=== PATIENT | male | born 1990 | race Hispanic/Latino ===

== ENCOUNTER 2022-05-29 14:59 | Outpatient (CLI) | payer OTHER | END 2022-05-29 15:00 | disposition home or self-care (01) | LOC: CSHMRI 14:59 | PROVIDERS: ATTEND Anesthesiology Pain Medicine | DX: M54.16 Radiculopathy, lumbar region (principal); M51.36 Other intervertebral disc degeneration, lumbar region; M51.37 Other intervertebral disc degeneration, lumbosacral region | CPT/HCPCS: 72120; 72148 ==